=== PATIENT | male | born 1980 | race Caucasian/White ===

== ENCOUNTER 2017-04-29 08:46 | Emergency (ER) | payer SELFPAY ==
[~2017-04-29] VITALS: Ht 635 cm; Wt 61.2 kg
[2017-04-29 08:46] VITALS: BP 127/102; BP 127/54
[~2017-04-29 08:46] MED LIST: ACULAR 3 ML3 ML OPH; INDOCIN50 MG PO; PHENERGAN25 M1 PO; PRILOSEC40 MG PO; TOBREX OPHTH S2.5 ML OPH
[2017-04-29 09:45] LABS: HEMATOCRIT 50.2 % (42.0-52.0); HEMOGLOBIN 17.4 g/dl (14.0-18.0); MEAN CELL VOLUME 90.9 fl (80.0-94.0); MEAN CORPUSCULAR HGB 31.5 pg (27.0-31.0); MEAN CORPUSCULAR HGB CONC 34.7 g/dl (33.0-37.0); MEAN PLATELET VOLUME 9.7 fl (9.6-12.3); PLATELET COUNT AUTOMATED 365 10*3/uL (130-400); RED BLOOD COUNT 5.52 10*6/uL (4.50-5.90); WHITE BLOOD COUNT 24.1 10*3/uL (4.8-10.8)
[2017-04-29 10:03] LABS: ALBUMIN 4.7 gm/dl (3.1-4.5); CREATININE 2.65 mg/dL (0.70-1.30); POTASSIUM 3.6 mmol/L (3.5-5.1); TOTAL PROTEIN 8.7 gm/dL (6.4-8.2)
[2017-04-29 10:30] LABS: TOTAL CELLS COUNTED 100 #CELLS
[2017-04-29 10:31] LABS: PLATELET SUFFICIENCY NORMAL (NORMAL)
[2017-04-29 10:45] VITALS: BP 120/60
== END 2017-04-29 13:24 | disposition left against medical advice (07) ==
LOC: ED 08:46 → EDHOLD 13:16 → ED 13:24
PROVIDERS: Nurse Practitioner Family
DX: D72.829 Elevated white blood cell count, unspecified (principal); F11.23 Opioid dependence with withdrawal; N17.9 Acute kidney failure, unspecified; F17.200 Nicotine dependence, unspecified, uncomplicated; Z98.890 Other specified postprocedural states